=== PATIENT | female | born 1980 | race Caucasian/White ===

== ENCOUNTER 2017-06-09 05:55 | Day surgery (SDC) | payer BC ==
[~2017-06-09] VITALS: Ht 162.6 cm; Wt 80.0 kg
[2017-06-09] VITALS (13 sets, daily range): BP systolic 115–152; BP diastolic 61–84; PULSE 98–104; RESP 12–24; Ht 162.6 cm; Wt 80.0 kg
[2017-06-09] MEDS ORDERED: SOD CHLORIDE 0.9% 1,000 ML IV SCH (06:00)
[2017-06-09] MEDS ORDERED: CEFAZOLIN 2 GM/50 ML (PMX) 50 ML IVPB ONE (06:00)
[2017-06-09] MEDS ORDERED: GLIM2TAB PO (06:41)
[2017-06-09] MEDS ORDERED: METF1000 PO (06:41)
[2017-06-09] MEDS ORDERED: DESFLURANE 15 MIN ONE (07:00)
[2017-06-09] MEDS ORDERED: BUPIVACAINE 0.25% (MPF) 30 ML INJ ONE (07:01)
[2017-06-09] MEDS ORDERED: PROPOFOL 20 ML ONE (07:37)
[2017-06-09] MEDS ORDERED: MIDAZOLAM 1 MG/ML 2 ML INJ ONE (07:37)
[2017-06-09] MEDS ORDERED: FENTAnyl 50 MCG/ML VIAL ONE ×2 (07:37→08:46)
[2017-06-09] MEDS ORDERED: LIDOCAINE 1% (MDV) 20 ML INJ ONE (07:37)
[2017-06-09] MEDS ORDERED: ROCURONIUM 50 MG INJ ONE (07:37)
[2017-06-09] MEDS ORDERED: ROPIVACAINE 0.5 % 30 ML VIAL ONE (07:42)
[2017-06-09] MEDS ORDERED: CEFAZOLIN 1 GM INJ ONE (08:08)
[2017-06-09] MEDS ORDERED: ONDANSETRON 4 MG INJ ONE ×2 (08:08→09:08)
[2017-06-09] MEDS ORDERED: DEXAMETHASONE 4 MG/ML 1 ML INJ ONE (08:08)
[2017-06-09] MEDS ORDERED: FAMOTIDINE 20 MG INJ ONE (08:12)
[2017-06-09] MEDS ORDERED: PHENYLephrine (100 MCG/ML) 5ML SYG ONE (08:25)
[2017-06-09] MEDS ORDERED: SUGAMMADEX SODIUM 200 MG/2 ML VIAL IV ONE (08:36)
[2017-06-09] MEDS ORDERED: KETOROLAC 30 MG INJ ONE (08:39)
--- NOTE | 2017-06-09 08:46 | OPR ---
Date/Time of Note Date/Time of Note DATE: 06/09/17 TIME: 08:43 Operative Report Procedure Date: Jun 09, 2017 Preoperative Diagnosis symptomatic gallstones Postoperative Diagnosis same Operation Performed 1. laparoscopic cholecystectomy 2. therapeutic injection of subcutaneous marcaine Surgeon: Shauna VALDIVIA Anesthesia Type: general Estimated Blood Loss: minimal Specimens gallbladder Grafts/Implants: none Complications: no Indications This is a 37-year-old female with symptomatic gallstones. She required surgical excision. Risks alternatives benefits and percent were discussed the patient. Patient's best understanding consents to the operation. Procedure Description Patient taken to the OR and prepped and draped in usual sterile fashion. Surgical timeout was performed. IV antibiotics given. Infra umbilical transverse incision was made with a 15 blade. Dissection cautery was carried down to the fascia. The fascia was grasped with [place]'s and divided with curved Luong scissors. 0 Vicryl U stitches placed into the fascia. Balloon Thomas trocar is introduced pneumoperitoneum is established. Midepigastric 12 mm optical trocar and right upper quadrant right upper flank 5 mm optical trochars were placed under direct visualization. Upon initial inspection there are adhesions to the gallbladder which were taken down bluntly. The liver appeared completely normal on visual inspection and thus did not require biopsy. The gallbladder was grasped by the fundus and retracted in the lateral and outward maneuver. Lateral dissection was initially started with cautery. The cystic duct was identified the critical view was established. The cystic duct and cystic artery were divided by clipping 3 clips proximally. Distally because of the thickened tissue the division was performed by a 35 mm echelon vascular stapler. The gallbladder was taken of the gallbladder bed. There was good hemostasis. The gallbladder was retrieved using an Endo Catch bag. Ports removed under direct visualization. 0 Vicryl U stitch was tied down. Skin was closed using skin leo. Therapeutic subcu times Marcaine was injected throughout all port sites. Dry dressings were applied. Shauna VALDIVIA Jun 09, 2017 08:46
[2017-06-09] MEDS ORDERED: HYDROmorphONE (0.2 MG/ML) 10ML SYG IV PRN ×4 (09:00→09:30)
[2017-06-09] MEDS ORDERED: hydrALAzine 20 MG INJ IV PRN (09:00)
[2017-06-09] MEDS ORDERED: HYDROCODONE/APAP (5/325) TAB PO ONE (09:00)
[2017-06-09] MEDS ORDERED: DIPHENHYDRAMINE 50 MG INJ IV PRN (09:00)
[2017-06-09] MEDS ORDERED: LORAZEPAM 2 MG INJ IV PRN (09:00)
[2017-06-09] MEDS ORDERED: MEPERIDINE 25 MG INJ IV PRN (09:00)
[2017-06-09] MEDS ORDERED: HYDROmorphONE (0.2 MG/ML) 10ML SYG IV ONE (09:26)
[2017-06-09] MEDS ORDERED: ONDANSETRON 4 MG INJ IV PRN (09:30)
== END 2017-06-09 11:36 | disposition home or self-care (01) ==
LOC: SDS 05:55
PROVIDERS: ATTEND Surgery
DX: K80.20 Calculus of gallbladder without cholecystitis without obstruction (principal); K80.10 Calculus of gallbladder with chronic cholecystitis without obstruction; E11.9 Type 2 diabetes mellitus without complications
CPT/HCPCS: 47562; 82962; 88304; J0690; J1100; J1170; J1885; J2250; J2405; J2795; J3010; Z7512; Z7610; J2370